=== PATIENT | female | born 1955 | race Caucasian/White ===

== ENCOUNTER → 2017-06-09 | Outpatient (CLI) | payer MEDICARE, OTHER ==
[~2017-06-09] MED LIST: ALPR.5; ALPR1; AMOX500 PO; ANUSOL HC PR; ARIP20 PO; ATEN25 PO; ATOR20 PO; Bactrim Ds Tab1 EACH PO; CELE100 PO; CELE200 PO; CEPH500 PO; CHOLESTEROL MED; CIPR500 PO; CLON.5; CLON1; CLON1 PO; CYCL10 PO; Cipro500 MG PO; DESV50 PO; DIPH50 PO; DULO30; DULO30 PO; FAMO20 PO; FLUO20; FLUO20 PO; GUAI600T33 PO; HYDACE5 PO; HYDACE7.5 PO; HYDMOR2 PO; IBUP800 PO; Keflex500 MG PO; LEVSOD100; LEVSOD100 PO; LEVSOD175 PO; LEVSOD200 PO; LEVSOD75 PO; LORA1 PO; LORA2 PO; LOSA50 PO; METPRE4DP PO; NAPR375 PO; NAPR500; NAPR500 PO; Norco 5-325 Ta1 EACH PO; ONDA4 PO; OXYC5 PO; PROP10 PO; PROPRANOLOL 20 MG PO; Prednisone20 MG PO; Prozac PO; Prozac20 MG PO; QUET200; QUET200 PO; QUET25 PO; RXAMOX500 PO; RXHYDACE PO; RXSULTRIDS PO; SULTRIDS PO; SYMBAX; Ultram50 MG PO; Veetids 500500 MG PO; ZIPR20 PO; ZIPR40 PO; Zofran Odt4 MG SL; Zofran4 MG PO; [UNRECOGNIZED DRUG - REMARK]; [UNRECOGNIZED DRUG - REMARK]
== END | disposition home or self-care (01) ==
LOC: LAB EV 14:45
DX: N39.0 Urinary tract infection, site not specified (principal)
CPT/HCPCS: 87077; 87086; 87186

== ENCOUNTER → 2017-09-06 | Outpatient (CLI) | payer MEDICARE, OTHER | LOC: LAB 08:15 → LAB SHORT 08:15 | DX: R30.0 Dysuria (principal) | CPT/HCPCS: 87086 ==

== ENCOUNTER → 2018-04-26 | Outpatient (CLI) | payer MEDICARE, OTHER | LOC: LAB 14:10 → LAB SHORT 14:10 | DX: N39.0 Urinary tract infection, site not specified (principal) | CPT/HCPCS: 87077; 87086; 87186 ==

== ENCOUNTER → 2018-05-18 | Outpatient (CLI) | payer MEDICARE, OTHER | LOC: LAB 11:55 → LAB SHORT 11:55 | DX: N39.0 Urinary tract infection, site not specified (principal) | CPT/HCPCS: 87077; 87086; 87186 ==

== ENCOUNTER → 2018-09-14 | Outpatient (CLI) | payer MEDICARE, OTHER ==
[~2018-09-14] MED LIST changes: +Adipex-P37.5 M1 PO; +CLON.5 PO; +COMPAZINE10 MG PO; +ESCI10 PO
[2018-09-17 11:05] LABS: FATS, NEUTRAL Normal (.); FATS, TOTAL Normal (.)
== END | disposition home or self-care (01) ==
LOC: LAB 10:00 → LAB SHORT 10:00 → EDSTATUS 09-01 15:10 → LAB FUT 09-01 15:10
PROVIDERS: Internal Medicine Gastroenterology
DX: R10.32 Left lower quadrant pain (principal); R19.7 Diarrhea, unspecified
CPT/HCPCS: 82705

== ENCOUNTER → 2019-05-03 | Outpatient (CLI) | payer MEDICARE, OTHER ==
[2019-05-03 14:02] LABS: Bilirubin, Urine Neg (Neg); Blood, Urine 2+ (Neg); Glucose Qualitative, Urine Neg (Neg); Ketones, Urine Neg (Neg); Leukocyte Esterase, Urine Neg (Neg); Nitrite, Urine Neg (Neg); Protein, Urine Neg (Neg); Specific Gravity, Urine 1.015 (1.003-1.022); Urobilinogen, Urine NORM (Normal)
[2019-05-03 14:12] LABS: Appearance, Urine Clear (Clear); Color, Urine Yellow (P-Yellow)
[2019-05-03 14:15] LABS: Bacteria Few /hpf; Red Blood Cells, Urine Rare /hpf (0-2); Squamous Epithelial Cells Rare /hpf (Few); White Blood Cells, Urine Rare /hpf (0-5)
== END | disposition home or self-care (01) ==
LOC: LAB 12:23 → LAB SHORT 12:23
PROVIDERS: Nurse Practitioner Family
DX: R30.0 Dysuria (principal)
CPT/HCPCS: 81001

== ENCOUNTER 2019-06-26 10:30 | Emergency (ER) | payer MEDICARE, OTHER ==
[~2019-06-26] VITALS: Ht 152.4 cm; Wt 113.4 kg
[2019-06-26 11:40] LABS: BASOPHILS ABSOLUTE AUTO 0.03 K/mm3 (0.00-0.23); BASOPHILS PERCENT AUTO 1 % (0-2); EOSINOPHILS ABSOLUTE AUTO 0.11 K/mm3 (0.00-0.68); EOSINOPHILS PERCENT AUTO 2 % (0-6); Hematocrit 40.4 % (33.0-51.0); Hemoglobin 13.4 g/dL (11.5-16.0); IMMATURE GRAN ABSOLUTE AUTO 0.02 K/mm3 (0.00-0.10); IMMATURE GRAN PERCENT AUTO 0 % (0-1); LYMPHOCYTES ABSOLUTE AUTO 0.81 K/mm3 (0.84-5.20); LYMPHOCYTES PERCENT AUTO 13 % (21-46); MONOCYTES ABSOLUTE AUTO 0.39 K/mm3 (0.16-1.47); MONOCYTES PERCENT AUTO 6 % (4-13); Mean Corpuscular HGB 31.8 pg (26.0-34.0); Mean Corpuscular HGB Conc 33.2 g/dL (31.5-36.5); Mean Corpuscular Volume 96 fL (80-100); Mean Platelet Volume 10.1 fL (9.1-12.4); NEUTROPHILS ABSOLUTE AUTO 4.73 K/mm3 (1.96-9.15); NEUTROPHILS PERCENT AUTO 78 % (41-73); Platelet Count 213 K/mm3 (150-400); RDW Coefficient Variation 11.9 % (11.7-14.2); RDW Standard Deviation 41.9 fL (35.1-46.3); Red Blood Cell Count 4.22 M/mm3 (3.80-5.20); White Blood Cell Count 6.09 K/mm3 (4.00-11.30)
[2019-06-26 11:58] LABS: Alanine Aminotransfer (ALT/SGP 20 U/L (12-78); Albumin, Blood 3.3 g/dL (3.4-5.0); Albumin/Globulin Ratio 0.8 (0.8-1.8); Alk Phos 78 U/L (50-136); Anion Gap 5 mmol/L (6-16); Aspartate Aminotrans (AST/SGOT 28 U/L (12-37); Bilirubin, Total 0.9 mg/dL (0.1-1.0); Blood Urea Nitrogen 11 mg/dL (8-24); Bun/Creatinine Ratio 21.1 (12.0-20.0); CO2, Blood 26 mmol/L (21-32); Chloride, Blood 105 mmol/L (98-108); Creatinine, Blood 0.52 mg/dL (0.40-1.00); Glomerular Filtration Rate >60 (60-); Glucose, Blood 90 mg/dL (70-99); Potassium, Blood 4.9 mmol/L (3.5-5.5); Sodium, Blood 136 mmol/L (136-145); Total Protein, Blood 7.3 g/dL (6.4-8.2); Troponin I <0.015 ng/mL (0.000-0.040)
[2019-06-26 12:46] LABS: Free Thyroxine 1.11 ng/dL (0.70-1.60)
[2019-06-26 12:48] LABS: Thyroid Stimulating Hormone 1.66 uIU/mL (0.360-4.800)
== END 2019-06-26 13:44 | disposition home or self-care (01) ==
LOC: ER 10:30
PROVIDERS: Emergency Medicine
DX: R00.2 Palpitations (principal); F32.9 Major depressive disorder, single episode, unspecified; Z88.5 Allergy status to narcotic agent; Z79.899 Other long term (current) drug therapy
CPT/HCPCS: 36415; 71046; 80053; 83735; 83880; 84439; 84443; 84484; 85025; 93005; 93010; 93225; 93226; 96374; 96375; 99285-25; J1885; J2405

== ENCOUNTER → 2021-01-06 | Outpatient (CLI) | payer MEDICARE, OTHER ==
[~2021-01-06] MED LIST changes: +ONDA4 MM; +Percocet 5-3251 EACH PO
== END ==
LOC: LAB SHORT 17:39 → LAB 17:39
DX: F41.1 Generalized anxiety disorder (principal); Z79.899 Other long term (current) drug therapy; Z88.5 Allergy status to narcotic agent
CPT/HCPCS: G0480

== ENCOUNTER → 2021-05-31 | Outpatient (CLI) | payer MEDICARE, OTHER | END | disposition home or self-care (01) | LOC: LAB SHORT 15:27 | DX: N39.0 Urinary tract infection, site not specified (principal) | CPT/HCPCS: 87077; 87086; 87186 ==

== ENCOUNTER 2021-10-18 07:12 | Emergency (ER) | payer MEDICARE, OTHER ==
[~2021-10-18] VITALS: Ht 154.9 cm; Wt 127.0 kg
[2021-10-18 09:18] LABS: Source, Urine Clean Catch
[2021-10-18 09:23] LABS: Appearance, Urine Clear (Clear); Bilirubin, Urine Neg (Neg); Blood, Urine 2+ (Neg); Color, Urine Yellow (P-Yellow); Glucose Qualitative, Urine Neg (Neg); Ketones, Urine Neg (Neg); Leukocyte Esterase, Urine Neg (Neg); Nitrite, Urine Neg (Neg); Protein, Urine Neg (Neg); Urobilinogen, Urine NORM (Normal)
[2021-10-18 09:33] LABS: BASOPHILS ABSOLUTE AUTO 0.02 K/mm3 (0.00-0.23); BASOPHILS PERCENT AUTO 0 % (0-2); EOSINOPHILS ABSOLUTE AUTO 0.18 K/mm3 (0.00-0.68); EOSINOPHILS PERCENT AUTO 2 % (0-6); Hematocrit 39.5 % (33.0-51.0); Hemoglobin 13.5 g/dL (11.5-16.0); IMMATURE GRAN ABSOLUTE AUTO 0.03 K/mm3 (0.00-0.10); IMMATURE GRAN PERCENT AUTO 0 % (0-1); LYMPHOCYTES ABSOLUTE AUTO 1.36 K/mm3 (0.84-5.20); LYMPHOCYTES PERCENT AUTO 14 % (21-46); MONOCYTES ABSOLUTE AUTO 0.69 K/mm3 (0.16-1.47); MONOCYTES PERCENT AUTO 7 % (4-13); Mean Corpuscular HGB 31.7 pg (26.0-34.0); Mean Corpuscular HGB Conc 34.2 g/dL (31.5-36.5); Mean Corpuscular Volume 93 fL (80-100); Mean Platelet Volume 9.5 fL (9.1-12.4); NEUTROPHILS ABSOLUTE AUTO 7.55 K/mm3 (1.96-9.15); NEUTROPHILS PERCENT AUTO 77 % (41-73); Platelet Count 258 K/mm3 (150-400); RDW Standard Deviation 41.1 fL (35.1-46.3); Red Blood Cell Count 4.26 M/mm3 (3.80-5.20); White Blood Cell Count 9.83 K/mm3 (4.00-11.30)
[2021-10-18 09:36] LABS: Bacteria Not Seen /hpf; Squamous Epithelial Cells Rare /hpf (Few); White Blood Cells, Urine 0-2 /hpf (0-5)
[2021-10-18 09:50] LABS: Albumin, Blood 3.3 g/dL (3.4-5.0); Albumin/Globulin Ratio 0.8 (0.8-1.8); Bilirubin, Total 0.9 mg/dL (0.1-1.0); Bun/Creatinine Ratio 14.5 (12.0-20.0); Calcium, Blood 9.3 mg/dL (8.5-10.1); Creatinine, Blood 0.42 mg/dL (0.40-1.00); Potassium, Blood 3.5 mmol/L (3.5-5.5); Total Protein, Blood 7.3 g/dL (6.4-8.2)
[2021-10-18] MEDS ORDERED: DICY20 PO (11:13)
[2021-10-18] MEDS ORDERED: ONDA4ODT MM (11:13)
== END 2021-10-18 12:07 | disposition home or self-care (01) ==
LOC: ER 07:12
PROVIDERS: Physician Assistant
DX: R10.9 Unspecified abdominal pain (principal); R11.0 Nausea; R51.9 Headache, unspecified; I10 Essential (primary) hypertension; F32.A Depression, unspecified; E89.0 Postprocedural hypothyroidism; Z79.899 Other long term (current) drug therapy; Z88.5 Allergy status to narcotic agent
CPT/HCPCS: 36415; 74176; 80053; 81001; 83690; 85025; A9270; J0780; J1200; J1885; J2405; J7030

== ENCOUNTER → 2022-05-26 | Outpatient (CLI) | payer MEDICARE, OTHER ==
[~2022-05-26] MED LIST changes: +DICY20 PO; +ONDA4ODT MM
[2022-05-26 10:33] LABS: Source, Urine Clean Catch
[2022-05-26 12:53] LABS: Appearance, Urine Clear (Clear); Bilirubin, Urine Neg (Neg); Blood, Urine Neg (Neg); Color, Urine Yellow (P-Yellow); Glucose Qualitative, Urine Neg (Neg); Ketones, Urine Neg (Neg); Leukocyte Esterase, Urine Neg (Neg); Nitrite, Urine Neg (Neg); Protein, Urine Neg (Neg); Specific Gravity, Urine 1.015 (1.003-1.022); Urobilinogen, Urine NORM (Normal)
== END | disposition home or self-care (01) ==
LOC: LAB SHORT 10:00 → LAB 10:00
PROVIDERS: Family Medicine
DX: M35.3 Polymyalgia rheumatica (principal)
CPT/HCPCS: 81003

== ENCOUNTER → 2022-11-19 | Outpatient (CLI) | payer MEDICARE, OTHER | END | disposition home or self-care (01) | LOC: LAB 11:54 → LAB SHORT 11:54 | DX: N39.0 Urinary tract infection, site not specified (principal) | CPT/HCPCS: 87077; 87086; 87186 ==

== ENCOUNTER → 2022-12-20 | Outpatient (CLI) | payer MEDICARE, OTHER | LOC: LAB SHORT 12:08 → LAB 12:08 | DX: N39.0 Urinary tract infection, site not specified (principal) | CPT/HCPCS: 87077; 87086; 87186 ==

== ENCOUNTER → 2023-05-23 | Outpatient (CLI) | payer MEDICARE, OTHER | END | disposition home or self-care (01) | LOC: LAB 16:38 → LAB SHORT 16:38 | DX: R10.30 Lower abdominal pain, unspecified (principal) | CPT/HCPCS: 87086 ==

== ENCOUNTER → 2023-11-09 | Outpatient (CLI) | payer MEDICARE, OTHER | END | disposition home or self-care (01) | LOC: LAB 15:07 → LAB SHORT 15:07 | DX: N39.0 Urinary tract infection, site not specified (principal) | CPT/HCPCS: 87077; 87086; 87186 ==

== ENCOUNTER → 2023-11-29 | Outpatient (CLI) | payer MEDICARE, OTHER | LOC: LAB 13:30 → LAB SHORT 13:30 | DX: R82.90 Unspecified abnormal findings in urine (principal) | CPT/HCPCS: 87086 ==

== ENCOUNTER → 2024-01-10 | Outpatient (CLI) | payer MEDICARE, OTHER | LOC: LAB 12:56 → LAB SHORT 12:56 | DX: R39.89 Other symptoms and signs involving the genitourinary system (principal) | CPT/HCPCS: 87086 ==

== ENCOUNTER → 2024-05-15 | Outpatient (CLI) | payer MEDICARE, OTHER | LOC: LAB 16:09 → LAB SHORT 16:09 | DX: N39.0 Urinary tract infection, site not specified (principal); A49.9 Bacterial infection, unspecified | CPT/HCPCS: 87077; 87086; 87186 ==

== ENCOUNTER 2024-06-26 14:56 | Emergency (ER) | payer MEDICARE, OTHER ==
[~2024-06-26] VITALS: Ht 149.9 cm; Wt 127.0 kg
[2024-06-26 16:15] LABS: CORONAVIRUS COVID-19 AG Negative (NEGATIVE); INFLUENZA A AG Negative (NEGATIVE); INFLUENZA B AG Negative (NEGATIVE)
[2024-06-26 16:58] VITALS: BP 202/87
[2024-06-26] MEDS ORDERED: RX Prepack Albuterol 1 PREPACK/6.7 GM INH UD ONE (17:00)
== END 2024-06-26 17:17 | disposition home or self-care (01) ==
LOC: ER 14:56
PROVIDERS: Physician Assistant
DX: J40 Bronchitis, not specified as acute or chronic (principal); J06.9 Acute upper respiratory infection, unspecified; I10 Essential (primary) hypertension; E89.0 Postprocedural hypothyroidism; Z79.890 Hormone replacement therapy; Z79.899 Other long term (current) drug therapy; Z88.5 Allergy status to narcotic agent
CPT/HCPCS: 71046; 87428-QW; 99283-25; A9270

== ENCOUNTER 2025-03-20 08:19 | Emergency (ER) | payer OTHER ==
[~2025-03-20] VITALS: Ht 154.9 cm; Wt 124.7 kg
[2025-03-20] MEDS ORDERED: NS 1,000 ML IV SCH ×2 (08:50→11:20)
[2025-03-20] MEDS ORDERED: Magnesium Sulf 2 GM/Water 50ML 50 ML IV ONE (08:50)
[2025-03-20 09:00] LABS: BASOPHILS ABSOLUTE AUTO 0.02 K/mm3 (0.00-0.23); BASOPHILS PERCENT AUTO 0 % (0-2); EOSINOPHILS ABSOLUTE AUTO 0.07 K/mm3 (0.00-0.68); EOSINOPHILS PERCENT AUTO 1 % (0-6); Hematocrit 37.0 % (33.0-51.0); Hemoglobin 12.7 g/dL (11.5-16.0); IMMATURE GRAN ABSOLUTE AUTO 0.01 K/mm3 (0.00-0.10); IMMATURE GRAN PERCENT AUTO 0 % (0-1); LYMPHOCYTES ABSOLUTE AUTO 1.50 K/mm3 (0.84-5.20); LYMPHOCYTES PERCENT AUTO 25 % (21-46); MONOCYTES ABSOLUTE AUTO 0.64 K/mm3 (0.16-1.47); MONOCYTES PERCENT AUTO 11 % (4-13); Mean Corpuscular HGB Conc 34.3 g/dL (31.5-36.5); Mean Corpuscular Volume 91 fL (80-100); NEUTROPHILS ABSOLUTE AUTO 3.85 K/mm3 (1.96-9.15); NEUTROPHILS PERCENT AUTO 63 % (41-73); NRBC ABSOLUTE 0.00 K/mm3 (0.00-0.02); NRBC Auto 0.0 /100 WBC (0.0-0.2); Platelet Count 184 K/mm3 (150-400); RDW Coefficient Variation 12.2 % (11.7-14.2); RDW Standard Deviation 40.9 fL (35.1-46.3)
[2025-03-20 09:20] LABS: Source, Urine Clean Catch
[2025-03-20 09:24] LABS: Bilirubin, Urine Neg (Neg); Glucose Qualitative, Urine Neg (Neg); Ketones, Urine Neg (Neg); Leukocyte Esterase, Urine 3+ (Neg); Protein, Urine Neg (Neg); Specific Gravity, Urine 1.010 (1.003-1.022); Urobilinogen, Urine NORM (Normal)
[2025-03-20 09:27] LABS: Alanine Aminotransfer (ALT/SGP 19.0 U/L (12-78); Albumin, Blood 3.5 g/dL (3.4-5.0); Albumin/Globulin Ratio 1.1 (0.8-1.8); Anion Gap 8.0 mmol/L (3-11); Aspartate Aminotrans (AST/SGOT 15.0 U/L (12-37); Bilirubin, Total 1.1 mg/dL (0.1-1.0); Blood Urea Nitrogen 14.0 mg/dL (8-24); CO2, Blood 24.0 mmol/L (21-32); Calcium, Blood 10.1 mg/dL (8.5-10.1); Chloride, Blood 110.0 mmol/L (98-108); Creatinine, Blood 0.55 mg/dL (0.40-1.00); Globulin, Blood 3.3 g/dL (2.2-4.0); Glucose, Blood 135.0 mg/dL (70-99); Magnesium, Blood 1.8 mg/dL (1.6-2.4); Potassium, Blood 3.3 mmol/L (3.5-5.5); Sodium, Blood 139.0 mmol/L (136-145); Total Protein, Blood 6.8 g/dL (6.4-8.2)
[2025-03-20 09:32] LABS: Color, Urine Pale Yellow (P-Yellow); White Blood Cells, Urine 25-50 /hpf (0-5)
[2025-03-20 09:33] LABS: Red Blood Cells, Urine 0-2 /hpf (0-2)
[2025-03-20] MEDS ORDERED: CefTRIAXone Sodium 1,000 MG in NS 100 ML IV ONE (09:45)
[2025-03-20] MEDS ORDERED: Diltiazem HCl 5 MG / ML 5ML Vial IV ONE (10:05)
[2025-03-20] MEDS ORDERED: Ketorolac Tromethamine 15mg Vial IV ONE (12:05)
[2025-03-20] MEDS ORDERED: CEFP200 PO (12:22)
[2025-03-20 13:32] VITALS: BP 141/70
== END 2025-03-20 13:37 | disposition home or self-care (01) ==
LOC: ER 08:19
PROVIDERS: Student in an Organized Health Care Education/Training Program
DX: I48.91 Unspecified atrial fibrillation (principal); N39.0 Urinary tract infection, site not specified; E87.6 Hypokalemia; R79.89 Other specified abnormal findings of blood chemistry; E89.0 Postprocedural hypothyroidism; I10 Essential (primary) hypertension; Z90.49 Acquired absence of other specified parts of digestive tract; Z79.890 Hormone replacement therapy; Z79.899 Other long term (current) drug therapy
CPT/HCPCS: 71046; 74177; 80053; 81001; 83690; 83735; 83880; 84484; 85025; 87077; 87086; 87186; 93005; 93010; 96365-59; 96366; 96368; 96375; 99285-25; A6590; A9270; J0696; J1885; J3475; J7030; Q9967

== ENCOUNTER 2025-03-23 11:47 | Emergency (ER) | payer OTHER ==
[~2025-03-23] VITALS: Ht 154.9 cm; Wt 79.4 kg
[~2025-03-23 11:47] MED LIST changes: +CEFP200 PO
[2025-03-23 12:58] LABS: Alanine Aminotransfer (ALT/SGP 19.0 U/L (12-78); Albumin, Blood 3.2 g/dL (3.4-5.0); Albumin/Globulin Ratio 0.9 (0.8-1.8); Anion Gap 7.0 mmol/L (3-11); Aspartate Aminotrans (AST/SGOT 16.0 U/L (12-37); Bilirubin, Total 0.6 mg/dL (0.1-1.0); Blood Urea Nitrogen 12.0 mg/dL (8-24); CO2, Blood 27.0 mmol/L (21-32); Calcium, Blood 9.9 mg/dL (8.5-10.1); Chloride, Blood 107.0 mmol/L (98-108); Creatinine, Blood 0.53 mg/dL (0.40-1.00); Globulin, Blood 3.4 g/dL (2.2-4.0); Glucose, Blood 108.0 mg/dL (70-99); Potassium, Blood 4.0 mmol/L (3.5-5.5); Sodium, Blood 137.0 mmol/L (136-145); Total Protein, Blood 6.6 g/dL (6.4-8.2)
[2025-03-23] MEDS ORDERED: HYDHCL25 PO (13:38)
[2025-03-23] MEDS ORDERED: LOSARTAN POTASS25 M2 PO (13:38)
[2025-03-23] MEDS ORDERED: MEMANTINE HCL511 PO (13:39)
[2025-03-23 13:40] LABS: BASOPHILS ABSOLUTE AUTO 0.03 K/mm3 (0.00-0.23); BASOPHILS PERCENT AUTO 1 % (0-2); EOSINOPHILS ABSOLUTE AUTO 0.10 K/mm3 (0.00-0.68); EOSINOPHILS PERCENT AUTO 2 % (0-6); Hematocrit 39.4 % (33.0-51.0); Hemoglobin 13.0 g/dL (11.5-16.0); IMMATURE GRAN ABSOLUTE AUTO 0.02 K/mm3 (0.00-0.10); IMMATURE GRAN PERCENT AUTO 0 % (0-1); LYMPHOCYTES ABSOLUTE AUTO 1.36 K/mm3 (0.84-5.20); LYMPHOCYTES PERCENT AUTO 25 % (21-46); MONOCYTES ABSOLUTE AUTO 0.41 K/mm3 (0.16-1.47); MONOCYTES PERCENT AUTO 8 % (4-13); Mean Corpuscular HGB Conc 33.0 g/dL (31.5-36.5); Mean Corpuscular Volume 92 fL (80-100); NEUTROPHILS ABSOLUTE AUTO 3.57 K/mm3 (1.96-9.15); NEUTROPHILS PERCENT AUTO 65 % (41-73); NRBC ABSOLUTE 0.00 K/mm3 (0.00-0.02); NRBC Auto 0.0 /100 WBC (0.0-0.2); Platelet Count 226 K/mm3 (150-400); RDW Coefficient Variation 12.2 % (11.7-14.2); RDW Standard Deviation 41.3 fL (35.1-46.3)
[2025-03-23 17:00] VITALS: BP 161/92
== END 2025-03-23 17:40 | disposition home or self-care (01) ==
LOC: ER 11:47
PROVIDERS: Student in an Organized Health Care Education/Training Program
DX: I10 Essential (primary) hypertension (principal); I48.91 Unspecified atrial fibrillation; Z59.89 Other problems related to housing and economic circumstances; Z88.5 Allergy status to narcotic agent; Z79.899 Other long term (current) drug therapy; Z79.01 Long term (current) use of anticoagulants; Z90.710 Acquired absence of both cervix and uterus
CPT/HCPCS: 36415; 71046; 80053; 84484; 85025; 85379; 93005; 93010; 99285-25